=== PATIENT | female | born 1995 | race American Indian/Alaskan Native ===

== ENCOUNTER 2018-12-23 15:28 | Emergency (ER) | payer OTHER ==
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
[2018-12-23 15:57] VITALS: BP 142/78
--- NOTE | 2018-12-23 16:36 | XRay Report ---
Right shoulder, 3 views INDICATION: shoulder pain. COMPARISON: None. IMPRESSION: Normal bone mineralization. No evidence for fracture or bone lesion. The distal right c lavicle appears slightly elevated with respect to the acromion on the internal rotational view. Corre late for injury to the AC ligament. Signer Name: Humphrey Diaz Jr, MD Signed: 12/23/2018 4:32 PM Workstation Name: [id number]
[2018-12-23] MEDS ORDERED: IBUPROFEN PO ONE (20:11)
[2018-12-23] MEDS ORDERED: TYLENOL PO ONE (20:11)
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
== END 2018-12-23 21:15 | disposition home or self-care (01) ==
LOC: ED 15:28
DX: S46.911A Strain of unspecified muscle, fascia and tendon at shoulder and upper arm level, right arm, initial encounter (principal); M62.830 Muscle spasm of back; Z79.899 Other long term (current) drug therapy; V49.49XA Driver injured in collision with other motor vehicles in traffic accident, initial encounter; Y93.89 Activity, other specified; Y92.488 Other paved roadways as the place of occurrence of the external cause; Y99.8 Other external cause status